=== PATIENT | female | born 1970 | race Caucasian/White ===

== ENCOUNTER 2016-12-17 08:35 | Emergency (ER) | payer MEDICAID ==
[~2016-12-17] VITALS: Ht 160 cm; Wt 78.7 kg
[2016-12-17 08:49] VITALS: BP 129/74
== END 2016-12-17 11:23 | disposition home or self-care (01) ==
LOC: ED 08:35
DX: S39.012A Strain of muscle, fascia and tendon of lower back, initial encounter (principal); X58.XXXA Exposure to other specified factors, initial encounter; Y93.89 Activity, other specified; Y99.8 Other external cause status; Y92.89 Other specified places as the place of occurrence of the external cause
CPT/HCPCS: J1170